=== PATIENT | female | born 1965 | race Caucasian/White ===

== ENCOUNTER 2023-02-08 02:14 | Emergency (ER) | payer OTHER ==
[2023-02-08 02:21] VITALS: TEMP 98.3
--- NOTE | 2023-02-08 02:40 | ERPHSYRPT ---
- History of Present Illness Time Seen by Provider: 02/08/23 02:20 Historian: patient, family Exam Limitations: no limitations Patient Subjective Stated Complaint: pt states that yesterday she was at [facility] for a rash on her face that she thought might be poison stevo and was prescribed prednisone which she started as prescribed then later yesterday starting getting a headache. she took 3 aleve tablets at approx 2230. states she hasn't went to sleep yet but was laying down and started feeling like she couldn't catch her breath and that it felt like her "chest was beating out of my chest". also reports lower midsternal chest pain that is constant, rated 8/10 and was unable to describe. Triage Nursing Assessment: pina Physician History: .Patient is a 57-year-old white female who was seen in [facility] yesterday for a rash on the face which was felt to be some sort of contact dermatitis. Today she developed a headache and then later on tonight started having palpitations racing heartbeat substernal chest pain and shortness of breath. She feels this is a reaction to the prednisone which may well be true. She says she has never taken steroids before. Her blood pressure at home was 213/104 here her blood pressure was 226/165 heart rate 87 Timing/Duration: today Activities at Onset: rest Quality: stabbing Location: substernal Chest Pain Radiation: no radiation Severity of Pain-Max: moderate Severity of Pain-Current: moderate Modifying Factors: Improves With: breathing, lying down, movement Associated Symptoms: palpitations Prior Chest Pain/Cardiac Workup: no prior chest pain Nitro Today/Relief: no nitro taken today Aspirin Treatment Today: no aspirin today Allergies/Adverse Reactions: Penicillins Allergy (Severe, Verified 02/08/23 02:18) Swelling of Tongue and Lips Sulfa (Sulfonamide Antibiotics) Allergy (Unknown, Verified 02/08/23 02:18) Hx Tetanus, Diphtheria Vaccination/Date Given: No Hx Influenza Vaccination/Date Given: No Hx Pneumococcal Vaccination/Date Given: No Immunizations Up to Date: No Travel Risk - International Travel Have you traveled outside of the country in past 3 weeks: No - Coronavirus Screening Are you exhibiting any of the following symptoms?: No Close contact with a COVID-19 positive Pt in past 14-21 Days: No - Vaccine Status Have you recieved a Covid-19 vaccination: No - Review of Systems Constitutional: No Fever, No Chills Eyes: No Symptoms Ears, Nose, & Throat: No Symptoms Respiratory: Dyspnea, No Cough Cardiac: Chest Pain, No Edema, No Syncope Abdominal/Gastrointestinal: No Abdominal Pain, No Nausea, No Vomiting, No Diarrhea Genitourinary Symptoms: No Dysuria Musculoskeletal: No Back Pain, No Neck Pain Skin: No Rash Neurological: No Dizziness, No Focal Weakness, No Sensory Changes Psychological: No Symptoms Endocrine: No Symptoms All Other Systems: Reviewed and Negative - Past Medical History Pertinent Past Medical History: Yes Neurological History: No Pertinent History ENT History: No Pertinent History Cardiac History: No Pertinent History Respiratory History: No Pertinent History Endocrine Medical History: No Pertinent History Musculoskeletal History: No Pertinent History GI Medical History: Diverticulitis, Diverticulosis History: No Pertinent History Psycho-Social History: No Pertinent History Female Reproductive Disorders: No Pertinent History - Past Surgical History Past Surgical History: Yes Neuro Surgical History: No Pertinent History Cardiac: No Pertinent History Respiratory: No Pertinent History Gastrointestinal: No Pertinent History Genitourinary: No Pertinent History Musculoskeletal: No Pertinent History Female Surgical History: Section, Other Other Surgical History: ectopic - Social History Smoking Status: Never smoker Exposure to second hand smoke: Yes Drug Use: none Patient Lives Alone: No - Nursing Vital Signs Nursing Vital Signs: Initial Vital Signs Temperature 98.3 F 02/08/23 02:17 Pulse Rate 114 H 02/08/23 02:17 Respiratory Rate 22 02/08/23 02:17 Blood Pressure 226/165 02/08/23 02:17 O2 Sat by Pulse Oximetry 97 02/08/23 02:17 Pain Scale Pain Intensity 6 - Physical Exam General Appearance: mild distress, alert Eye Exam: PERRL/EOMI, eyes nml inspection Ears, Nose, Throat Exam: normal ENT inspection, moist mucous membranes Neck Exam: normal inspection, non-tender, supple, full range of motion Respiratory Exam: normal breath sounds, lungs clear, respiratory distress (Mild) Cardiovascular Exam: regular rate/rhythm, normal heart sounds, tachycardia Gastrointestinal/Abdomen Exam: soft, No tenderness, No mass Back Exam: normal inspection, No CVA tenderness, No vertebral tenderness Extremity Exam: normal inspection, normal range of motion Neurologic Exam: alert, oriented x 3, cooperative, normal mood/affect, sensation nml, No motor deficits Skin Exam: normal color, warm, dry SpO2 Interpretation: normal SpO2: 97 O2 Delivery: Room Air - Course Nursing assessment & vital signs reviewed: Yes EKG Interpreted by Me: RATE (96), Sinus Rhythm, NORMAL AXIS, NORMAL INTERVALS, NORMAL QRS, Non-specific ST Changes - Radiology Exams Chest X-ray Interpretation: Interpreted by me, Negative Ordered Tests: Active Orders 24 hr Category Date Time Status EKG-ER Only STAT Care 02/08/23 02:24 Active IV Insertion STAT Care 02/08/23 02:24 Active CHEST 1 VIEW (PORTABLE) Stat Exams 02/08/23 02:25 Taken CBC W DIFF Stat Lab 02/08/23 02:30 Completed CMP Stat Lab 02/08/23 02:30 Completed CULTURE,URINE Stat Lab 02/08/23 02:39 Received Lactic Acid Stat Lab 02/08/23 03:00 Completed MAGNESIUM Stat Lab 02/08/23 02:30 Completed NT PRO BNPII Stat Lab 02/08/23 02:30 Completed TROPONIN Q4H Lab 02/08/23 02:30 Completed TROPONIN Q4H Lab 02/08/23 06:30 Ordered TROPONIN Q4H Lab 02/08/23 10:30 Ordered UA W/RFX UR CULTURE Stat Lab 02/08/23 02:39 Completed Urine Triage Profile Stat Lab 02/08/23 02:39 Completed Medication Summary Discontinued Medications Generic Name Dose Route Start Last Admin Trade Name Freq PRN Reason Stop Dose Admin Labetalol HCl 20 mg 02/08/23 02:24 02/08/23 02:42 Labetalol Hcl 20 Mg/4 Ml Disp.Syringe IV 02/08/23 02:25 20 mg STAT ONE Administration Labetalol HCl Confirm 02/08/23 02:41 Labetalol Hcl 20 Mg/4 Ml Disp.Syringe Administered 02/08/23 02:42 Dose 20 mg IV .STK-MED ONE Morphine Sulfate 2 mg 02/08/23 02:24 02/08/23 02:42 Morphine Sulfate 2 Mg/Ml Inj IV 02/08/23 02:25 2 mg STAT ONE Administration Morphine Sulfate Confirm 02/08/23 02:41 Morphine Sulfate 2 Mg/Ml Inj Administered 02/08/23 02:42 Dose 2 mg .ROUTE .STK-MED ONE Ondansetron HCl 4 mg 02/08/23 02:32 02/08/23 02:42 Ondansetron Hcl 4 Mg/2 Ml Vial IV 02/08/23 02:33 4 mg STAT ONE Administration Ondansetron HCl Confirm 02/08/23 02:41 Ondansetron Hcl 4 Mg/2 Ml Vial Administered 02/08/23 02:42 Dose 4 mg .ROUTE .STK-MED ONE Lab/Rad Data: Laboratory Result Diagrams 02/08/23 02:30 02/08/23 02:30 Laboratory Results 02/08/23 02/08/23 02/08/23 Range/Units 03:00 02:39 02:39 WBC (4.0-10.5) x10^3/uL RBC (4.1-5.4) x10^6/uL Hgb (12.0-16.0) g/dL Hct (35-47) % MCV (78-100) fL MCH (26-32) pg MCHC (32-36) g/dL RDW (11.5-14.0) % Plt Count (150-450) x10^3/uL MPV (7.5-11.0) fL Gran % (36.0-66.0) % Immature Gran % (Auto) (0.00-0.4) % Nucleat RBC Rel Count (0.00-0.1) % Eos # (Auto) (0-0.5) x10^3/uL Immature Gran # (Auto) (0.00-0.03) x10^3u/L Absolute Lymphs (auto) (1.0-4.6) x10^3/uL Absolute Monos (auto) (0.0-1.3) x10^3/uL Absolute Nucleated RBC (0.00-0.01) x10^3u/L Lymphocytes % (24.0-44.0) % Monocytes % (0.0-12.0) % Eosinophils % (0.00-5.0) % Basophils % (0.0-0.4) % Absolute Granulocytes (1.4-6.9) x10^3/uL Basophils # (0-0.4) x10^3/uL Sodium (137-145) mmol/L Potassium (3.5-5.1) mmol/L Chloride (98-107) mmol/L Carbon Dioxide (22-30) mmol/L Anion Gap (5-15) MEQ/L BUN (7-17) mg/dL Creatinine (0.52-1.04) mg/dL Estimated GFR ML/MIN Glucose (74-106) mg/dL Lactic Acid 2.0 (0.4-2.0) Calcium (8.4-10.2) mg/dL Magnesium (1.6-2.3) mg/dL Total Bilirubin (0.2-1.3) mg/dL AST (14-36) U/L ALT (0-35) U/L Alkaline Phosphatase (38-126) U/L Troponin I (0.000-0.034) ng/mL NT-Pro-B Natriuret Pep (<300) pg/mL Serum Total Protein (6.3-8.2) g/dL Albumin (3.5-5.0) g/dL Urine Color Yellow (Yellow) Urine Appearance Clear (Clear) Urine pH 7.0 (4.6-8.0) Ur Specific [place] <=1.005 (1.005-1.030) Urine Protein 30 (Negative) Urine Glucose (UA) Negative (Negative) mg/dL Urine Ketones Negative (Negative) Urine Blood Trace (Negative) Urine Nitrite Negative (Negative) Urine Bilirubin Negative (Negative) Urine Urobilinogen 0.2 (0.2) mg/dL Ur Leukocyte Esterase Moderate A (Negative) U Hyaline Cast (Auto) NONE SEEN (0-2) /LPF Urine Microscopic RBC 0-2 (0-5) /HPF Urine Microscopic WBC 21-50 A (0-5) /HPF Ur Epithelial Cells Rare (None Seen) /HPF Urine Bacteria None Seen (None Seen) /HPF Urine Culture Reflexed YES (NO) Urine Opiates Level NEGATIVE (NEGATIVE) Ur Methadone NEGATIVE (NEGATIVE) Urine Barbiturates NEGATIVE (NEGATIVE) Ur Phencyclidine (PCP) NEGATIVE (NEGATIVE) Urine Amphetamine NEGATIVE (NEGATIVE) U Benzodiazepine Level NEGATIVE (NEGATIVE) Urine Cocaine NEGATIVE (NEGATIVE) Urine Marijuana (THC) NEGATIVE (NEGATIVE) 02/08/23 02/08/23 02/08/23 Range/Units 02:30 02:30 02:30 WBC 11.6 H (4.0-10.5) x10^3/uL RBC 5.56 H (4.1-5.4) x10^6/uL Hgb 16.8 H (12.0-16.0) g/dL Hct 49.5 H (35-47) % MCV 89.0 (78-100) fL MCH 30.2 (26-32) pg MCHC 33.9 (32-36) g/dL RDW 13.0 (11.5-14.0) % Plt Count 296 (150-450) x10^3/uL MPV 11.4 H (7.5-11.0) fL Gran % 75.7 H (36.0-66.0) % Immature Gran % (Auto) 0.7 H (0.00-0.4) % Nucleat RBC Rel Count 0.0 (0.00-0.1) % Eos # (Auto) 0.02 (0-0.5) x10^3/uL Immature Gran # (Auto) 0.08 H (0.00-0.03) x10^3u/L Absolute Lymphs (auto) 1.96 (1.0-4.6) x10^3/uL Absolute Monos (auto) 0.72 (0.0-1.3) x10^3/uL Absolute Nucleated RBC 0.00 (0.00-0.01) x10^3u/L Lymphocytes % 16.9 L (24.0-44.0) % Monocytes % 6.2 (0.0-12.0) % Eosinophils % 0.2 (0.00-5.0) % Basophils % 0.3 (0.0-0.4) % Absolute Granulocytes 8.77 H (1.4-6.9) x10^3/uL Basophils # 0.04 (0-0.4) x10^3/uL Sodium 140 (137-145) mmol/L Potassium 4.2 (3.5-5.1) mmol/L Chloride 105 (98-107) mmol/L Carbon Dioxide 20 L (22-30) mmol/L Anion Gap 19.1 H (5-15) MEQ/L BUN 16 (7-17) mg/dL Creatinine 0.80 (0.52-1.04) mg/dL Estimated GFR > 60.0 ML/MIN Glucose 113 H (74-106) mg/dL Lactic Acid (0.4-2.0) Calcium 9.7 (8.4-10.2) mg/dL Magnesium 2.2 (1.6-2.3) mg/dL Total Bilirubin 1.30 (0.2-1.3) mg/dL AST 32 (14-36) U/L ALT 24 (0-35) U/L Alkaline Phosphatase 149 H (38-126) U/L Troponin I < 0.012 (0.000-0.034) ng/mL NT-Pro-B Natriuret Pep 44.9 (<300) pg/mL Serum Total Protein 8.3 H (6.3-8.2) g/dL Albumin 4.6 (3.5-5.0) g/dL Urine Color (Yellow) Urine Appearance (Clear) Urine pH (4.6-8.0) Ur Specific [place] (1.005-1.030) Urine Protein (Negative) Urine Glucose (UA) (Negative) mg/dL Urine Ketones (Negative) Urine Blood (Negative) Urine Nitrite (Negative) Urine Bilirubin (Negative) Urine Urobilinogen (0.2) mg/dL Ur Leukocyte Esterase (Negative) U Hyaline Cast (Auto) (0-2) /LPF Urine Microscopic RBC (0-5) /HPF Urine Microscopic WBC (0-5) /HPF Ur Epithelial Cells (None Seen) /HPF Urine Bacteria (None Seen) /HPF Urine Culture Reflexed (NO) Urine Opiates Level (NEGATIVE) Ur Methadone (NEGATIVE) Urine Barbiturates (NEGATIVE) Ur Phencyclidine (PCP) (NEGATIVE) Urine Amphetamine (NEGATIVE) U Benzodiazepine Level (NEGATIVE) Urine Cocaine (NEGATIVE) Urine Marijuana (THC) (NEGATIVE) - Progress Progress: improved Air Movement: good Blood Culture(s) Obtained: No Antibiotics given: Yes Medical Desision Making - Diagnostic Testing Diagnostic test were ordered, analyzed, and reviewed by me: Yes Radiological Interpretation: Interpreted by me - Risk of complications Low Risk: Low risk of morbidity from additional dx testing or treatment - Departure Departure Disposition: Home Clinical Impression: Hypertension Condition: Stable Critical Care Time: No Instructions: Adverse Drug Reactions, Adult (DC) Prescriptions: Ciprofloxacin [Cipro 500 MG] 500 mg PO BID #14 tablet Metoprolol Succinate 50 mg [Toprol Xl 50 MG] 50 mg PO DAILY 30 Days #30 tablet
[2023-02-08] MEDS ORDERED: Zofran 4 MG/2 ML VIAL ONE (02:41)
[2023-02-08] MEDS ORDERED: TRANDATE 20 MG/4 ML SYRINGE IV ONE (02:41)
[2023-02-08] MEDS ORDERED: MORPHINE SULFATE 2 MG INJ ONE ×2 (02:41→03:32)
[2023-02-08] MEDS: MORPHINE SULFATE 2 MG INJ IV ONE ×2 (02:42→03:38)
[2023-02-08] MEDS: TRANDATE 20 MG/4 ML SYRINGE IV ONE (02:42)
[2023-02-08] MEDS: Zofran 4 MG/2 ML VIAL IV ONE (02:42)
[2023-02-08 02:45] LABS: Absolute Neutrophil Ct (ANC) 8.77 x10^3/uL (1.4-6.9); BASOPHIL % 0.3 % (0.0-0.4); Basophil (Absolute #) 0.04 x10^3/uL (0-0.4); Eosinophil % 0.2 % (0.00-5.0); Eosinophil (Absolute #) 0.02 x10^3/uL (0-0.5); Hematocrit 49.5 % (35-47); Hemoglobin 16.8 g/dL (12.0-16.0); IMMATURE GRAN # 0.08 x10^3u/L (0.00-0.03); IMMATURE GRAN % 0.7 % (0.00-0.4); Lymphocyte (Absolute #) 1.96 x10^3/uL (1.0-4.6); Lymphocytes % 16.9 % (24.0-44.0); Mean Corpuscular Hemoglobin 30.2 pg (26-32); Mean Corpuscular Hgb Concent. 33.9 g/dL (32-36); Mean Platelet Volume 11.4 fL (7.5-11.0); Monocyte (Absolute #) 0.72 x10^3/uL (0.0-1.3); Monocytes % 6.2 % (0.0-12.0); Neutrophil % 75.7 % (36.0-66.0); Platelet Count 296 x10^3/uL (150-450); Red Blood Count 5.56 x10^6/uL (4.1-5.4); White Blood Count 11.6 x10^3/uL (4.0-10.5)
[2023-02-08 02:51] LABS: ADD URINE CULTURE? YES (NO); Appearance Clear (Clear); Bacteria None Seen /HPF (None Seen); Bilirubin Negative (Negative); Blood Trace (Negative); Epithelial Cells Rare /HPF (None Seen); Glucose, Urine Negative (Negative); Hyaline Casts NONE SEEN /LPF (0-2); Ketones Negative (Negative); Leukocyte Esterase Moderate (Negative); Nitrite Negative (Negative); Protein,Urine Dip 30 (Negative); RBC 0-2 /HPF (0-5); Specific Gravity <=1.005 (1.005-1.030); Urobilinogen 0.2 mg/dL (0.2); WBC 21-50 /HPF (0-5)
[2023-02-08 03:06] LABS: Amphetamine,Urine NEGATIVE (NEGATIVE); Barbiturate,Urine NEGATIVE (NEGATIVE); Benzodiazepine,Urine NEGATIVE (NEGATIVE); Cocaine,Urine NEGATIVE (NEGATIVE); Methadone,Urine NEGATIVE (NEGATIVE); Opiate,Urine NEGATIVE (NEGATIVE); PCP,Urine NEGATIVE (NEGATIVE); THC,Urine NEGATIVE (NEGATIVE)
[2023-02-08 03:11] LABS: ALBUMIN 4.6 g/dL (3.5-5.0); ALKALINE PHOSPHATASE 149 U/L (38-126); ANION GAP 19.1 MEQ/L (5-15); BLOOD UREA NITROGEN 16 mg/dL (7-17); CHLORIDE 105 mmol/L (98-107); Calcium 9.7 mg/dL (8.4-10.2); Carbon Dioxide 20 mmol/L (22-30); EST GLOMERULAR FILTRATION RATE > 60.0 ML/MIN; Glucose 113 mg/dL (74-106); MAGNESIUM 2.2 mg/dL (1.6-2.3); NT PRO BNPII 44.9 pg/mL (<300); Potassium 4.2 mmol/L (3.5-5.1); SGOT/AST 32 U/L (14-36); SGPT/ALT 24 U/L (0-35); SODIUM 140 mmol/L (137-145); Total Protein 8.3 g/dL (6.3-8.2)
[2023-02-08 04:02] VITALS: BP 119/64; PULSE 69; RESP 17; O2SAT 96
--- NOTE | 2023-02-08 08:55 | XRAY ---
Indication: Chest pain. Comparison: None Portable apical lordotic chest demonstrates normal heart and lungs. Bony thorax intact with minimal degenerative changes.
== END 2023-02-08 04:03 | disposition home or self-care (01) ==
LOC: ED 02:14
DX: I10 Essential (primary) hypertension (principal); R07.9 Chest pain, unspecified; R06.02 Shortness of breath; R00.2 Palpitations; Z28.310 Unvaccinated for COVID-19
CPT/HCPCS: 36000; 36415; 71045; 80053; 80307; 81001; 83605; 83735; 83880; 84484; 85025; 87086; 93005; 96374; 96375; 96376; 99284; J2270; J2405

== ENCOUNTER 2023-03-22 01:19 | Emergency (ER) | payer OTHER ==
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
[2023-03-22 01:43] VITALS: TEMP 97.7
[2023-03-22] MEDS ORDERED: LOPRESSOR INJECTION IV ONE ×2 (01:49→02:11)
[2023-03-22] MEDS ORDERED: MORPHINE SULFATE 2 MG INJ IV ONE (01:49)
[2023-03-22] MEDS ORDERED: Zofran 4 MG/2 ML VIAL IV ONE (01:49)
[2023-03-22 02:10] LABS: Absolute Neutrophil Ct (ANC) 8.88 x10^3/uL (1.4-6.9); BASOPHIL % 0.8 % (0.0-0.4); Eosinophil % 1.5 % (0.00-5.0); Eosinophil (Absolute #) 0.18 x10^3/uL (0-0.5); Hematocrit 50.2 % (35-47); Hemoglobin 16.5 g/dL (12.0-16.0); IMMATURE GRAN # 0.05 x10^3u/L (0.00-0.03); IMMATURE GRAN % 0.4 % (0.00-0.4); Lymphocyte (Absolute #) 1.93 x10^3/uL (1.0-4.6); Lymphocytes % 16.4 % (24.0-44.0); Mean Corpuscular Hemoglobin 29.6 pg (26-32); Mean Corpuscular Hgb Concent. 32.9 g/dL (32-36); Mean Platelet Volume 11.3 fL (7.5-11.0); Monocyte (Absolute #) 0.63 x10^3/uL (0.0-1.3); Monocytes % 5.4 % (0.0-12.0); Neutrophil % 75.5 % (36.0-66.0); Platelet Count 333 x10^3/uL (150-450); Red Blood Count 5.58 x10^6/uL (4.1-5.4); Red Cell Distribution Width 12.8 % (11.5-14.0); White Blood Count 11.8 x10^3/uL (4.0-10.5)
[2023-03-22] MEDS ORDERED: Zofran 4 MG/2 ML VIAL ONE (02:11)
[2023-03-22] MEDS ORDERED: MORPHINE SULFATE 2 MG INJ ONE (02:11)
[2023-03-22 02:23] LABS: ALBUMIN 4.7 g/dL (3.5-5.0); ALKALINE PHOSPHATASE 130 U/L (38-126); ANION GAP 16.8 MEQ/L (5-15); BLOOD UREA NITROGEN 15 mg/dL (7-17); CHLORIDE 103 mmol/L (98-107); Calcium 9.6 mg/dL (8.4-10.2); Carbon Dioxide 23 mmol/L (22-30); Creatinine 1 0.93 mg/dL (0.52-1.04); EST GLOMERULAR FILTRATION RATE > 60.0 ML/MIN; Glucose 126 mg/dL (74-106); Potassium 3.6 mmol/L (3.5-5.1); SGOT/AST 31 U/L (14-36); SGPT/ALT 22 U/L (0-35); SODIUM 139 mmol/L (137-145); Total Protein 8.3 g/dL (6.3-8.2)
[2023-03-22] MEDS ORDERED: HEPARIN 5000 UNITS/0.5 ML (HIGH RISK MED) IV ONE (02:46)
[2023-03-22 03:17] VITALS: BP 139/106; PULSE 101; RESP 27; O2SAT 95
[2023-03-22] MEDS ORDERED: HEPARIN 5000 UNITS/0.5 ML (HIGH RISK MED) ONE (03:17)
--- NOTE | 2023-03-22 08:38 | XRAY ---
Indication: Left chest pain. Comparison: February 08, 2023 Portable chest inflated without focal infiltrate, consolidation, or large effusion. Heart not enlarged. Bony thorax intact. Impression: Continued nonacute chest.
== END 2023-03-22 03:46 | disposition short-term general hospital (02) ==
LOC: ED 01:19
DX: I21.4 Non-ST elevation (NSTEMI) myocardial infarction (principal); R07.9 Chest pain, unspecified; Z73.3 Stress, not elsewhere classified; Z28.310 Unvaccinated for COVID-19
CPT/HCPCS: 36000; 36415; 71045; 80053; 84484; 85025; 93005; 94760; 96374; 96375; 99285; 99291; J1644; J2270; J2405